=== PATIENT | female | born 1970 | race Caucasian/White ===

== ENCOUNTER 2018-05-11 10:45 | Emergency (ER) | payer OTHER ==
[~2018-05-11] VITALS: Ht 162.6 cm; Wt 64.0 kg
[~2018-05-11 10:45] MED LIST: ALBU0.63 NEB; GABA300C10 PO; HYDR-3237 PO; TOPI100T24 PO
--- NOTE | 2018-05-11 11:05 | NUR ---
PT PRESENTED TO ED D/T CONSTIPATION X 5 DAYS. PT STATES HX OF SAME. STATES HAS SCHEDULED COLONOSCOPY AND ENDOSCOPY 05/28. HX OF BLADDER TUMOR.
[2018-05-11] MEDS ORDERED: IBUP200C8 PO (11:12)
[2018-05-11] MEDS ORDERED: ACET-1600 PO (11:12)
--- NOTE | 2018-05-11 11:19 | NUR ---
PT STATES ALLERGIC TO IV AND ORAL CONTRAST. SHE STATES IT CAUSESE "HIVES AND SHORTNESS OF BREATH." RN ADDED ALLERGY TO LIST. RN TO INFORM ERMD.
[2018-05-11 11:30] LABS: BASOPHILS # (AUTO) 0.04 x10^3/uL (0-0.1); BASOPHILS % (AUTO) 1 % (0-1); EOSINOPHILS # (AUTO) 0.06 x10^3/uL (0-0.4); EOSINOPHILS % (AUTO) 1 % (1-7); LYMPHOCYTES # (AUTO) 1.84 x10^3/uL (1-3.4); LYMPHOCYTES % (AUTO) 28 % (22-44); MD NO; MEAN CORPUSCULAR HEMOGLOBIN 24.8 pg (27.0-34.8); MEAN CORPUSCULAR HGB CONC 31.8 g/dL (32.4-35.8); MEAN CORPUSCULAR VOLUME 77.9 fL (80-100); MEAN PLATELET VOLUME 8.2 fL (7.4-10.4); MONOCYTES # (AUTO) 0.45 x10^3/uL (0.2-0.8); MONOCYTES % (AUTO) 7 % (2-9); NEUTROPHILS # (AUTO) 4.29 x10^3/uL (1.8-6.8); NEUTROPHILS % (AUTO) 64 % (42-75); PLATELET COUNT 401 x10^3/uL (130-400); RED BLOOD COUNT 4.79 x10^6/uL (3.82-5.3); RED CELL DISTRIBUTION WIDTH 15.4 % (9.6-15.2)
[2018-05-11] MEDS ORDERED: MAGNESIUM CITRATE 300ML ORAL SOL PO ONE (11:30)
[2018-05-11] MEDS ORDERED: DICYCLOMINE 10 MG/ML, 2ML ONE (11:30)
[2018-05-11] MEDS ORDERED: DICYCLOMINE 10 MG/ML, 2ML IM ONE (11:30)
[2018-05-11] MEDS ORDERED: MAGNESIUM CITRATE 300ML ORAL SOL ONE (11:30)
--- NOTE | 2018-05-11 11:36 | NUR ---
PT STATING SHE WOULD LIKE TO DRINK THE MG CITRATE AFTER CT SCAN. PT DENIED NEED FOR BENTYL AT THIS TIME. PT STATED SHE MIGHT "WANT IT IN A LITTLE BIT." RN TO CONTINUE TO MONITOR.
[2018-05-11 11:43] LABS: ALANINE AMINOTRANSFERASE 19 U/L (12-78); ALBUMIN 3.5 g/dL (3.4-5.0); ANION GAP 8 mmol/L (5-15); CALCIUM 8.5 mg/dL (8.5-10.1); CHLORIDE 106 mmol/L (98-107); CREATININE 0.94 mg/dL (0.55-1.02)
[2018-05-11 11:45] LABS: MICROSCOPIC AUTO
[2018-05-11 11:47] LABS: CULTURE INDICATED? NO
[2018-05-11 11:47] LABS: ALKALINE PHOSPHATASE 80 U/L (45-117); BILIRUBIN,TOTAL 0.6 mg/dL (0.2-1.0); TOTAL PROTEIN 7.4 g/dL (6.4-8.2)
--- NOTE | 2018-05-11 12:14 | NUR ---
PT TRANSPORTED TO US VIA GURNEY.
--- NOTE | 2018-05-11 12:44 | NUR ---
PT SITTING ON GURNEY DRINKING MG CITRATE. PT STILL DENIES NEED FOR BENTYL AT THIS TIME. VSS. WARM BLANKET PROVIDED TO PT. NO NEEDS AT THIS TIME. RN TO CONTINUE TO MONITOR.
[2018-05-11] MEDS ORDERED: MAALOX/HYOSCYAMINE/LIDOCAINE 45 ML BTL ONE (12:55)
--- NOTE | 2018-05-11 12:57 | NUR ---
PT MEDICATED PER EMAR.
[2018-05-11] MEDS ORDERED: MAALOX/HYOSCYAMINE/LIDOCAINE 45 ML BTL PO ONE (13:00)
--- NOTE | 2018-05-11 13:10 | NUR ---
REPORT TO ADOLFO MCKAY.
--- NOTE | 2018-05-11 13:27 | NUR ---
PT. WAS GIVEN DISCHARGE INSTRUCTIONS AND SCRIPTS WITH UNDERSTANDING VERBALIZED ALONG WITH WILLINGNESS TO COMPLY. PT. WAS AMBULATORY TO THE DISCHARGE DESK WITH A STEADY GAIT.
[2018-05-11 13:29] VITALS: BP 131/84
== END 2018-05-11 13:31 | disposition home or self-care (01) ==
LOC: ED 11:58
DX: R10.13 Epigastric pain (principal); R10.84 Generalized abdominal pain; F41.1 Generalized anxiety disorder; G43.909 Migraine, unspecified, not intractable, without status migrainosus; Z88.1 Allergy status to other antibiotic agents
CPT/HCPCS: 36415; 74176; 80053; 81001; 83690; 84703; 85025; 99284

== ENCOUNTER 2018-06-22 11:53 | Day surgery (SDC) | payer OTHER ==
[~2018-06-22] VITALS: Ht 162.6 cm; Wt 76.9 kg
[~2018-06-22 11:53] MED LIST changes: +ACET-1600 PO; +IBUP200C8 PO
[2018-06-22] MEDS ORDERED: LACTATED RINGERS 1,000 ML IV SCH (12:34)
[2018-06-22] MEDS ORDERED: ALBU0.63 NEB (12:35)
[2018-06-22 12:38] VITALS: BP 151/93
[2018-06-22] MEDS ORDERED: PROPOFOL 10 MG/ML, 20ML ONE ×6 (12:42→13:44)
[2018-06-22 12:50] LABS: HCG UR SG 1.014 (1.003-1.030)
[2018-06-22] MEDS ORDERED: ONDANSETRON 2MG/ML, 2ML ONE (14:21)
[2018-06-22] MEDS ORDERED: ONDANSETRON 2MG/ML, 2ML IVPush ONE (14:30)
[2018-06-22] MEDS ORDERED: FENTANYL PF 100 MCG/2ML ONE (15:33)
[2018-06-22] MEDS ORDERED: OXYcodone 5 MG/5 ML ORAL.SOL UDC ONE (15:33)
== END 2018-06-22 15:35 | disposition home or self-care (01) ==
LOC: OUT 11:53
PROVIDERS: ATTEND Internal Medicine
DX: K31.89 Other diseases of stomach and duodenum (principal); J45.909 Unspecified asthma, uncomplicated; Z88.0 Allergy status to penicillin; Z88.8 Allergy status to other drugs, medicaments and biological substances; Z98.890 Other specified postprocedural states
CPT/HCPCS: 43242; 81025; 88305; 93005; J2405; J2704; J7120

== ENCOUNTER 2019-06-04 09:09 | Emergency (ER) | payer OTHER ==
[~2019-06-04] VITALS: Ht 162.6 cm; Wt 79.2 kg
--- NOTE | 2019-06-04 09:36 | NUR ---
PT CAME IN CO SOB, BODY ACHES, BEACH, DRY COUGH, FEVERS, SORE THROAT. PT WAS AFEBIRLE IN TRIAGE. PT HAS HX OF CANCER BUT IS NOT CURRENTLY GETTING CHEMO. PT DID A TELE DOC CALL AND WAS TOLD SHE SHOULD COME TO THE ED. HATTIE DOS SANTOS, IS BEDSIDE.
--- NOTE | 2019-06-04 09:43 | NUR ---
REPORT RECEIVED FROM EMIL SNEED.
--- NOTE | 2019-06-04 09:54 | NUR ---
PT REFUSED TO TAKE MEDS AT THIS TIME. PA NOTIFIED.
--- NOTE | 2019-06-04 10:34 | NUR ---
THIS RN ATTEMPTED TO DC AND PT STATES "I'M HERE FOR ABD PAIN AND CP. ONLY XRAY ORDER. CAN YOU PLEASE ASK THE DR?" PA NOTIFIED AND ORDERED LABS/UA. PT NOTIFIED.
--- NOTE | 2019-06-04 10:35 | NUR ---
PT AMB TO BR WITH STEADY GAIT. URINE CUP GIVEN.
--- NOTE | 2019-06-04 10:45 | NUR ---
URINE SMPLE COLLECTED AND SENT.
[2019-06-04 10:56] LABS: BASOPHILS # (AUTO) 0.03 x10^3/uL (0-0.1); BASOPHILS % (AUTO) 1 % (0-1); EOSINOPHILS # (AUTO) 0.04 x10^3/uL (0-0.4); EOSINOPHILS % (AUTO) 1 % (1-7); LYMPHOCYTES % (AUTO) 27 % (22-44); MD NO; MEAN CORPUSCULAR HEMOGLOBIN 26.4 pg (27.0-34.8); MEAN CORPUSCULAR HGB CONC 32.9 g/dL (32.4-35.8); MEAN CORPUSCULAR VOLUME 80.3 fL (80-100); MEAN PLATELET VOLUME 8.2 fL (7.4-10.4); MONOCYTES # (AUTO) 0.47 x10^3/uL (0.2-0.8); MONOCYTES % (AUTO) 7 % (2-9); NEUTROPHILS # (AUTO) 4.46 x10^3/uL (1.8-6.8); NEUTROPHILS % (AUTO) 66 % (42-75); PLATELET COUNT 407 x10^3/uL (130-400); RED BLOOD COUNT 4.88 x10^6/uL (3.82-5.3)
[2019-06-04 10:59] LABS: MICROSCOPIC NOT IND
[2019-06-04 11:06] LABS: CULTURE INDICATED? NO
[2019-06-04 11:07] LABS: ALBUMIN 3.5 g/dL (3.4-5.0); ANION GAP 5 mmol/L (5-15); CALCIUM 8.9 mg/dL (8.5-10.1); CHLORIDE 109 mmol/L (98-107)
[2019-06-04 11:13] LABS: ALANINE AMINOTRANSFERASE 19 U/L (12-78); ALKALINE PHOSPHATASE 73 U/L (45-117); BILIRUBIN,TOTAL 0.8 mg/dL (0.2-1.0); CREATININE 0.86 mg/dL (0.55-1.02); TOTAL PROTEIN 7.6 g/dL (6.4-8.2)
[2019-06-04 11:25] VITALS: BP 137/81
--- NOTE | 2019-06-04 11:27 | NUR ---
Patient given discharge instructions and they have confirmed that they understand the instructions. Patient ambulatory with steady gait.
== END 2019-06-04 11:28 | disposition home or self-care (01) ==
LOC: ED 09:39
DX: J45.31 Mild persistent asthma with (acute) exacerbation (principal); G43.909 Migraine, unspecified, not intractable, without status migrainosus
CPT/HCPCS: 36415; 71045; 80053; 81003; 83690; 84703; 85025; 93005; 99285

== ENCOUNTER 2019-06-14 06:43 | Day surgery (SDC) | payer OTHER ==
[~2019-06-14] VITALS: Ht 162.6 cm; Wt 79.0 kg
[2019-06-14] MEDS ORDERED: LACTATED RINGERS 1,000 ML IV SCH (07:02)
[2019-06-14 07:11] VITALS: BP 164/93
[2019-06-14] MEDS ORDERED: PLEASE ENTER HEIGHT AND WEIGHT MC SCH (07:30)
[2019-06-14] MEDS ORDERED: CHLORHEXIDINE 15 ML UDC MM ONE (07:30)
[2019-06-14] MEDS ORDERED: CALC300T4 PO (07:34)
[2019-06-14] MEDS ORDERED: CBD OIL SL (07:35)
[2019-06-14 07:36] LABS: MICROSCOPIC INDICATED
[2019-06-14 07:58] LABS: CULTURE INDICATED? YES
[2019-06-14] MEDS ORDERED: OXYcodone 5 MG/5 ML ORAL.SOL UDC PO PRN (08:00)
[2019-06-14] MEDS ORDERED: PROPOFOL 10 MG/ML, 20ML ONE (08:00)
[2019-06-14] MEDS ORDERED: LABETALOL 5MG/ML, 20ML IV PRN (08:00)
[2019-06-14] MEDS ORDERED: ONDANSETRON 2MG/ML, 2ML IV PRN (08:00)
[2019-06-14] MEDS ORDERED: SUGAMMADEX 200 MG/2 ML IVPush ONE (08:00)
[2019-06-14] MEDS ORDERED: hydrALAzine 20 MG/ML, 1ML IV PRN (08:00)
[2019-06-14] MEDS ORDERED: ROCURONIUM 10 MG/ML,10ML ONE (08:00)
[2019-06-14] MEDS ORDERED: SUCCINYLCHOLINE 20 MG/ML, 10ML ONE (08:00)
[2019-06-14] MEDS ORDERED: ONDANSETRON 2MG/ML, 2ML ONE (08:00)
[2019-06-14] MEDS ORDERED: ACETAMINOPHEN 325 MG TABLET PO PRN (08:00)
[2019-06-14] MEDS ORDERED: FENTANYL PF 100 MCG/2ML IV PRN (08:00)
[2019-06-14] MEDS ORDERED: KETOROLAC 30 MG/1 ML IV PRN (08:00)
[2019-06-14] MEDS ORDERED: FENTANYL PF 100 MCG/2ML ONE (14:14)
== END 2019-06-14 10:25 | disposition home or self-care (01) ==
LOC: OUT 06:43
PROVIDERS: ATTEND Internal Medicine
DX: K31.89 Other diseases of stomach and duodenum (principal); K29.50 Unspecified chronic gastritis without bleeding; I10 Essential (primary) hypertension; J45.909 Unspecified asthma, uncomplicated; Z87.891 Personal history of nicotine dependence; Z88.0 Allergy status to penicillin; Z88.1 Allergy status to other antibiotic agents; Z88.8 Allergy status to other drugs, medicaments and biological substances
CPT/HCPCS: 43239; 43259; 81001; 81025; 87086; 88305; J0330; J2405; J2704; J3010; J7120